=== PATIENT | female | born 1955 | race Hispanic/Latino ===

== ENCOUNTER → 2019-02-12 | Outpatient (CLI) | payer OTHER ==
[~2019-02-12] MED LIST: ASPI-555 PO; CALC-483 PO; GABA-531 PO; LOSA25TA41 PO; METF-446 PO; OMEG1CAP43 PO; SIMV40TA59 PO
== END | disposition home or self-care (01) ==
LOC: SHCH 08:02
PROVIDERS: ATTEND Internal Medicine Cardiovascular Disease
DX: I25.10 Atherosclerotic heart disease of native coronary artery without angina pectoris (principal); Z92.82 Status post administration of tPA (rtPA) in a different facility within the last 24 hours prior to admission to current facility
CPT/HCPCS: 93306